=== PATIENT | female | born 1955 | race Caucasian/White ===

== ENCOUNTER → 2017-05-15 13:37 | Outpatient (CLI) | payer MEDICARE, SELFPAY ==
[2017-05-15 13:40] LABS: Pathologist Comment May follow
[2017-05-15 14:22] LABS: RBC /Synovial Fluid 0.001 10^6/uL (0); Synovial Fld Mononuclear WBC % 62.7 %; Synovial Fld Polynuclear WBC # 0.225 10^3/ul; Synovial Fld Polynuclear WBC % 37.3 %
[2017-05-15 14:50] LABS: AUTO B FLUID DILUENT BKGD CT WBC <0.1 RBC <0.01 (W<.1,R<.01)
[2017-05-15 14:51] LABS: Source- Body Fluid SYNOVIAL
[2017-05-15 14:52] LABS: Appearance /Synovial Fluid CLEAR (CLEAR); Color / Synovial Fluid YELLOW (Pale Yellow); Source / Synovial Fluid R KNEE; Viscosity / Synovial Fluid Viscous (HIGH)
[2017-05-15 17:18] LABS: Lymph 3 %; Monocyte /Synovial Fluid 65 %; Neutrophil 32 % (0-25)
[2017-05-15 17:19] LABS: Body Fluid QC Type(s) BF2,BF3
[2017-05-16 15:50] LABS: Pathologist Review Reviewed
== END ==
PROVIDERS: Visit Provider Internal Medicine Rheumatology
DX: L40.59 Other psoriatic arthropathy (principal); L40.8 Other psoriasis; M25.561 Pain in right knee; M17.0 Bilateral primary osteoarthritis of knee; M21.40 Flat foot [pes planus] (acquired), unspecified foot; I10 Essential (primary) hypertension; F32.89 Other specified depressive episodes; Z79.899 Other long term (current) drug therapy
CPT/HCPCS: 87070; 87075; 87205; 89050; 89051; 89060

== ENCOUNTER → 2021-12-23 | Outpatient (CLI) | payer MEDICARE, SELFPAY ==
--- NOTE | 2021-12-23 14:20 | EMB_PTH ---
PATIENT: LA NENA MATUTE LOC: [facility] U#:[id number] AGE/SX: 66/F ROOM: RE12/23/[address]: Dr. Dany Melendez MD : [id number] BED: DIS: 12/23/2021 SPEC #: [id number] RECD: 12/23/21 15:00 STATUS: ANISA FRANTZ #: [id number] IVONNE: 12/23/21 14:[address]: Dany Melendez DEPT: SURGICAL PATHOLOGY RECD BY: Modesta Mcmahan ENTERED: 12/24/21 09:53 SP TYPE: ENDOM BX/C MARTÍNEZ DR: No Primary Care Phys Tissues: Endometrium, NOS Procedures: Surgery Specimen Level IV HEADER OPERATION: Endometrial biopsy PRE-OP DIAGNOSIS: PMB TISSUE SUBMITTED: Endometrial biopsy MICROSCOPIC DIAGNOSIS Endometrial biopsy: Polypoid fragments of lower uterine segment with disordered proliferative endometrium and with focal cystic changes. KEISHA:mia 12/27/2021 COMMENT Findings may represent fragments of polyp. Correlation with clinical finding and appropriate follow-up are necessary. Case has been reviewed in consultation with Dr. Michel who concurs with the above diagnosis. IDC:AM MICROSCOPIC DESCRIPTION Slides are reviewed. GROSS DESCRIPTION Received in fixative is one container labeled with the patient's name and designated endometrial biopsy. The specimen consists of multiple irregular fragments of pink mucoid tissue that in aggregate measure 2.5 x 2 x 0.1 cm. The specimen is totally submitted in one cassette. / SJ:rg 12/24/2021 TC:5 CPT: 06436
== END | disposition home or self-care (01) ==
LOC: LABSPEC 14:45
PROVIDERS: Visit Provider Obstetrics & Gynecology
DX: N95.0 Postmenopausal bleeding (principal)
CPT/HCPCS: 88305

== ENCOUNTER → 2022-01-17 | Outpatient (CLI) | payer MEDICARE, SELFPAY ==
[2022-01-24] MEDS: Lactated Ringers 1,000 ML 120 ML IV (09:20)
--- NOTE | 2022-01-24 09:27 | PCM.HP.BLA ---
History and Physical Date of Admission: 01/24/22 Chief complaint: Abnormal uterine bleeding History present illness: 66-year-old scheduled for hysteroscopy, dilation curettage, polypectomy. No medical changes since last seen. Educated patient on risk benefits alternatives of the procedure Obstetric history: Patient with a history of 2 vaginal deliveries Past medical history: Anxiety, hyperlipidemia Medications: Fluoxetine, pravastatin Past surgical history: Cholecystectomy, carpal tunnel Allergies: No known drug allergies Social history: Denies smoking, alcohol use, drug use Family history: Denies history DVT or PE Review of systems: Besides above pertinent positives a full review of systems was performed and found to be negative Physical exam: Vitals: Pending General: Normal-appearing no acute distress HEENT: Normocephalic/atraumatic no cervical lymphadenopathy Cardiac/respiratory: No accessory muscles, nonlabored breathing Abdomen: Soft, nontender, nondistended Extremities: No peripheral edema normal peripheral pulses Psych: Normal affect normal demeanor nonpressured speech Assessment plan: 66-year-old scheduled for hysteroscopy, dilation curettage, polypectomy. All questions answered and consent signed
[2022-01-24 09:35] VITALS: BP 146/73; PULSE 61; RESP 18; TEMP 36.2; O2SAT 95; BMI 31.1
== END | disposition home or self-care (01) ==
LOC: PAT 02-17 08:40
PROVIDERS: PCP Physician Assistant; Referring Provider Obstetrics & Gynecology; Visit Provider Obstetrics & Gynecology
DX: Z53.9 Procedure and treatment not carried out, unspecified reason (principal)
CPT/HCPCS: J7120